=== PATIENT | female | born 1935 | race Caucasian/White ===

== ENCOUNTER → 2017-02-04 | Outpatient (CLI) | END | disposition home or self-care (01) | DX: M17.11 Unilateral primary osteoarthritis, right knee (principal); Z96.652 Presence of left artificial knee joint | CPT/HCPCS: 20610; 73562; G0463 ==

== ENCOUNTER → 2017-04-08 | Outpatient (CLI) | payer MEDICARE, OTHER ==
--- NOTE | 2017-04-30 04:04 | HKNOTE ---
DATE OF SERVICE: MAIN COMPLAINT: Pain in the right knee. The patient was last seen by me on February 04, 2017 complaining of pain in her right knee. She has previously had a left knee replacement in 2011. She was diagnosed as having degenerative osteoarthritis of the right knee. She was given a cortisone injection into the knee and advised that she will need to have a knee replacement at some time in the near future. The patient comes in for recheck on the knee today. PHYSICAL EXAMINATION: Blood pressure 140/80, temp 99.5. Height 5 foot 1, weight 130 pounds. KNEES: Examination of the right knee. Range of motion is 0-85 degrees. Marked severe pain on attempted flexion, 85 degrees. 6+ crepitus in the knee and the patella. IMAGING: X-rays of the right knee obtained in January were reviewed. These show severe degenerative osteoarthritis in medial compartment of patellofemoral joint. ASSESSMENT: The patient was advised that she will definitely need to have a knee replacement sooner or later. She indicates that she is not ready to consider surgery. We did spend considerable time discussing knee replacement, possible complications, and recovery from the surgery. PROCEDURE: Under sterile condition I gave her an injection of 2 cc of Kenalog and 10 cc of 2 percent lidocaine into the knee and she will be seen again as necessary for further evaluation and treatment, depending on whether she wishes to proceed with the surgery or consider further conservative measures. Dictated By: Mateo Tong MD /cece/nell /Document#: [id number]
--- NOTE | 2017-04-30 04:04 | HKNOTE ---
DATE OF SERVICE: 04/08/2017 MAIN COMPLAINT: The patient comes in for a recheck on her right knee. She was last seen by me on February 04. She was given a cortisone injection into the knee at that time, after diagnosing severe arthritis of the knee. The injection gave her about 3 weeks of excellent improvement. The pain has returned, but it is not as bad as it was before. It was not as bad as it had as it had been before. In the past week or so, the pain has become very much more severe. She indicates that it is "an 8 or a 9 on a scale of 10." PHYSICAL EXAMINATION: The patient has difficult time walking. VITAL SIGNS: Height 5 foot 1 weight, 130 pounds, blood pressure 140/80, temperature 99.5. KNEES: Examination of the right knee. Extension is full. Flexion is to 85 degrees and there is quite severe pain on attempting further flexion. 6+ crepitus of the knee and none of the patella. No external sign of infection or inflammation. 2+ effusion. 6+ crepitus in the knee and the patella. IMAGING: The x-rays obtained in January were reviewed today. These once again show severe degenerative osteoarthritis in medial compartment of patellofemoral joint. ASSESSMENT: The patient was advised that she most definitely will need to have a right knee replacement sometime in the near future. Considerable time was spent with her discussing what was involved with knee replacement. Postoperative course was discussed with her. She was shown videos of patients of [facility] who had knee replacement surgery. She was given a copy of my booklet on knee arthritis and knee replacement surgery. PROCEDURE: Under sterile conditions, she was given an injection of 2 cc of Kenalog with 6 cc 2 percent lidocaine into the right knee and she will call when she wishes to proceed with surgery or consider further injections. Dictated By: Mateo Tong MD /cece/nell /Document#: [id number]
== END | disposition home or self-care (01) ==
LOC: HKI 13:25
DX: M17.11 Unilateral primary osteoarthritis, right knee (principal)
CPT/HCPCS: 20610; G0463

== ENCOUNTER → 2017-05-02 | Outpatient (CLI) | payer MEDICARE, OTHER ==
--- NOTE | 2017-05-05 14:22 | HKNOTE ---
DATE OF SERVICE: 05/02/2017 CHIEF COMPLAINT: Right knee pain. HISTORY OF THE PRESENT ILLNESS: Cherelle is a 81-year-old female who is here for evaluation of right knee pain. The patient has had pain in her knees for many years. Pain has worsened over the last 6 months to a point where it is interfering with routine activities. She is having difficulty with w alking, getting up from a sitting position and sleeping at night. She has been taking ibuprofen wit hout much relief. She is able to walk a short distance after which the knee becomes painful. She d id have a left knee replacement by Dr. Tong a few years ago and has done well with that. At t his time, she is considering a right total knee replacement and is here to discuss further managemen t. PAST MEDICAL HISTORY: Significant for left total knee replacement. The patient takes cholesterol m edications and aspirin but is otherwise healthy. ALLERGIES: None. REVIEW OF SYSTEMS: Positive for phlebitis in the past. Denies any other cardiac or pulmonary probl ems. PHYSICAL EXAMINATION: This shows a pleasant female, awake, alert and oriented, walks with a slight limp on her right side. Examination of the right knee shows a varus deformity of about 10 degrees. Range of motion is 15 to 95 degrees with medial joint line tenderness and crepitus. There is no i nstability and no neovascular deficit. The left knee has a healed incision with full range of motio n. X-rays of the right knee were reviewed and show advance osteoarthritis with complete loss of med ial joint space and osteophyte formation. ASSESSMENT AND PLAN: A 81-year-old female with advanced osteoarthritis of her right knee. She has failed conservative treatment for more than 2 years. Over the past 6 months, the pain has reached a point where she is considering surgical treatment. Risks and benefits of total knee replacement we re discussed. Implant materials and surgical techniques were discussed and the patient would like t o proceed with right knee replacement in the near future. Dictated By: LINCOLN SARGENT/ETJAL Conf#: [id number] DID#: [id number]
== END | disposition home or self-care (01) ==
LOC: HKI 15:03
PROVIDERS: ATTEND Orthopaedic Surgery
DX: M17.11 Unilateral primary osteoarthritis, right knee (principal); E78.00 Pure hypercholesterolemia, unspecified; Z96.652 Presence of left artificial knee joint
CPT/HCPCS: G0463

== ENCOUNTER → 2017-07-11 | Outpatient (CLI) | payer MEDICARE, OTHER ==
--- NOTE | 2017-07-12 15:21 | HKNOTE ---
DATE OF SERVICE: 07/11/2017 Ms. Kumari is a 81-year-old female who is here for preoperative visit related to her right knee repl acement. The patient has advanced osteoarthritis of her right knee. She is scheduled for right tot al knee replacement on 07/15/2017. Risks and benefits of surgical treatment were discussed with the patient in detail including but not limited to bleeding, infection, scarring stiffness, injury to nerves and vessels, chronic pain, imp lant failure, fracture, dislocation, DVT, PE, and need for further surgery. The patient understands and wishes to proceed. She is scheduled for a postop followup in 2 weeks. Dictated By: LINCOLN SARGENT/NTS Conf#: [id number] DID#: [id number]
== END | disposition home or self-care (01) ==
LOC: HKI 14:24
PROVIDERS: ATTEND Orthopaedic Surgery
DX: Z01.818 Encounter for other preprocedural examination (principal); M17.11 Unilateral primary osteoarthritis, right knee
CPT/HCPCS: G0463

== ENCOUNTER 2017-07-15 05:54 | Inpatient (IN) | payer MEDICARE, OTHER ==
--- NOTE | 2017-07-08 14:25 | PREOPHP ---
DATE OF ADMISSION: 07/15/2017 PREOPERATIVE INTERNAL MEDICINE CONSULTATION, MEDICAL HISTORY AND PHYSICAL Patient to have surgery with Dr. Lincoln Salinas on 07/15/2017. CONSULTATION REQUESTED BY: Dr. Lincoln Salinas for medical evaluation and clearance of a 81-year-old ayad hernandez about to undergo surgery. Thank you, Dr. Salinas, for participating and allowing us to participate in the care of our patient. HISTORY OF PRESENT ILLNESS: Cherelle Kumari, a 81-year-old woman, issues with both of her knees, had a knee replacement done on the left within the last couple of years and currently is being admitted for the right knee total knee replacement. In terms of her past medical and surgical history, medic ally she has had no hospitalizations. She had 2 pregnancies which were vaginal deliveries. Surgica lly she has had a hysterectomy, had a total knee replacement on the left as well as cataract surgery , right and left. She has not broken any big bones. MEDICATIONS: She takes Simvastatin 10 mg a day and a baby aspirin which she is stopping before her surgery. ALLERGIES: SHE IS NOT ALLERGIC TO ANY MEDICATIONS. SOCIAL HISTORY: The patient is a , has 2 children, 5 grandchildren, no great grandchildren. S he does not smoke. Alcohol socially. Does drink 1 to 2 cups of coffee a day. Has no difficulty sl eeping at night. FAMILY HISTORY: Both parents are . Father at age 71 of heart, mother age 54 of breast cancer. Two brothers are living, one of lung cancer. Family history of diabetes, heart, canc er, hypertension and stroke. REVIEW OF SYSTEMS HEENT: Periodic tension headaches. CARDIORESPIRATORY: Denies any chest pain or shortness of breath. GASTROINTESTINAL: No melena or hematemesis. GENITOURINARY: No urgency, frequency. GYNECOLOGIC: Post hysterectomy. MUSCULOSKELETAL: Positive for right knee pain. NEUROPSYCHIATRIC: Unremarkable. GENERAL HEALTH: As above. PHYSICAL EXAMINATION: VITAL SIGNS: The patient's blood pressure was 140/90, pulse was 85 and regular, respirations were 1 8, temperature 97.9, height 60 inches, weight 130 pounds. GENERAL: The patient was noted to be a well-developed, well-nourished female, alert and cooperative , in no apparent acute distress, oriented to time, place and person. HEAD, EARS, EYES, NOSE AND THROAT: Head was atraumatic. The eyes, pupils were equal, reactive to l ight and accommodation. Fundi were benign. Tympanic membranes were unremarkable. Nose was negativ e. Mouth was unremarkable. Fair oral hygiene was present. NECK: Supple without any rigidity. Trachea was midline. Thyroid was within normal limits. Neck v eins were flat. Carotid pulses were equal. No bruits were heard. BACK: Unremarkable. CHEST: Symmetrical. BREASTS AND AXILLARY: Did not reveal any masses. LUNGS: Clear to percussion and auscultation. HEART: PMI is fifth intercostal space at the midclavicular line. Regular sinus rhythm was noted. No significant murmurs, rubs or gallops being elicited. ABDOMEN: Soft, good bowel sounds were noted. No significant organomegaly, masses or tenderness. S car from prior surgery was noted. GENITALIA: Normal female external genitalia. PELVIC/RECTAL: Pelvic vaginal exam unremarkable. The patient is post-hysterectomy. Rectal exam wa s unremarkable. EXTREMITIES: Did not reveal any clubbing, edema or cyanosis. Scar was noted on the left knee from her total knee replacement. Peripheral pulses were physiologic. SKIN: Moist and warm without any eruptions. No gross lymphadenopathy was noted. NEUROLOGIC: Grossly intact. IMPRESSION: 1. Degenerative joint disease, right knee. 2. Status post total knee replacement on the left. 3. Hyperlipidemia. 4. Degenerative joint disease. 5. Menopausal syndrome. 6. Stable health. DISCUSSION: Review of laboratory and other data revealed the following: The patient's electrolyte s, BUN, creatinine, liver function tests, calcium were normal. Random glucose was 111, minimally el evated lipids. Hemoglobin A1c, CBC, UA, PT and PTT were normal. The patient's EKG showed some nons pecific ST-T wave changes, but no acute ST-T wave changes being noted, and the patient's chest x-ray was normal. Dr. Salinas, I see no contraindications to patient undergoing current proposed surgery under desired form of anesthesia and feel she is a suitable candidate at this particular point in time. I will be more than happy to follow her up with you during her stay at [facility]. Thank you again, Dr. Salinas, for allowing us to participate and for participating in the care of our patient. Dictated By: JOSS ARROYO/TEJAL Conf#: [id number] DID#: [id number] CC: LINCOLN SALINAS MD;*[facility]*
[~2017-07-15] VITALS: Ht 154.9 cm; Wt 59.2 kg
[2017-07-15] VITALS (22 sets, daily range): BP systolic 105–160; BP diastolic 56–78; PULSE 65–102; RESP 14–34; Ht 154.9 cm; Wt 59.2 kg
[~2017-07-15 05:54] MED LIST: TRANEXAMIC ACID 1,000 MG in DEXTROSE 5% 100 ML IV ONE
[2017-07-15] MEDS ORDERED: ACETAMINOPHEN 1000MG/100ML IV 100 ML IVPB ONE (07:00)
[2017-07-15] MEDS ORDERED: LANSOPRAZOLE 30 MG CAP PO ONE (07:00)
[2017-07-15] MEDS ORDERED: ONDANSETRON 4 MG INJ IV ONE (07:00)
[2017-07-15] MEDS ORDERED: CEFAZOLIN SODIUM 2GM/D5W 50 X1 IVPB ONE (07:00)
[2017-07-15] MEDS ORDERED: DEXAMETHASONE 4 MG/ML 1 ML INJ IV ONE (07:00)
[2017-07-15] MEDS ORDERED: CELECOXIB 200 MG CAP PO ONE (07:00)
[2017-07-15] MEDS ORDERED: ASPI325T4 PO (07:23)
[2017-07-15] MEDS ORDERED: SIMV10TA PO (07:24)
[2017-07-15] MEDS ORDERED: CALC3.7S4 NASAL (07:25)
--- NOTE | 2017-07-15 07:41 | HPN ---
Date/Time of Note Date/Time of Note DATE: 07/15/17 TIME: 07:41 Interval H&P Admission Note Pt. seen H&P reviewed: No system changes ANTONI SANDHU PA-C Jul 15, 2017 07:41
[2017-07-15] MEDS ORDERED: TRANEXAMIC ACID 1,000 MG in DEXTROSE 5% 100 ML IV ONE (08:00)
[2017-07-15] MEDS ORDERED: ETOMIDATE 20 MG INJ ONE (08:43)
[2017-07-15] MEDS ORDERED: METOCLOPRAMIDE 10 MG INJ ONE (08:44)
[2017-07-15] MEDS ORDERED: ONDANSETRON 4 MG INJ ONE (08:44)
[2017-07-15] MEDS ORDERED: MIDAZOLAM 1 MG/ML 2 ML INJ ONE (08:44)
[2017-07-15] MEDS ORDERED: FENTAnyl 50 MCG/ML VIAL ONE (08:44)
[2017-07-15] MEDS ORDERED: ROPIVACAINE 0.2% 20 ML VIAL ONE (09:02)
[2017-07-15] MEDS ORDERED: DEXAMETHASONE 4 MG/ML 1 ML INJ ONE (09:04)
[2017-07-15] MEDS ORDERED: PROPOFOL 100 ML ONE (09:43)
[2017-07-15] MEDS ORDERED: CEFAZOLIN 1 GM INJ ONE (09:43)
[2017-07-15] MEDS ORDERED: EPHEDrine SULFATE 50 MG/5 ML SYG ONE (09:44)
[2017-07-15] MEDS ORDERED: HYDROmorphONE (0.2 MG/ML) 10ML SYG IV PRN ×3 (10:00)
[2017-07-15] MEDS ORDERED: ONDANSETRON 4 MG INJ IV PRN (10:00)
[2017-07-15] MEDS ORDERED: MEPERIDINE 25 MG INJ IV PRN (10:00)
[2017-07-15] MEDS ORDERED: DIPHENHYDRAMINE 50 MG INJ IV PRN (10:00)
--- NOTE | 2017-07-15 11:13 | SIPON ---
Date/Time of Note Date/Time of Note DATE: 07/15/17 TIME: 11:12 Operative Report Preoperative Diagnosis right knee DJD Postoperative Diagnosis same Operation/Procedure Performed right TKA Surgeon see signature line business assistant Dr. Mitchell Sidhu Second assist: ANTONI SANDHU PA-C Anesthesia: spinal Estimated blood loss: 150 - 200 ml's Transfusion Required none Specimen bone Grafts/Implants DePuy 4 femur, 4 tibia, 6 poly, 35 patella Complications none LINCOLN SALINAS Jul 15, 2017 11:13
--- NOTE | 2017-07-15 11:38 | PDOCDIS ---
Discharge Instructions DIAGNOSIS Discharge Diagnosis Status post right total knee arthroplasty CONDITION Patient Condition: Good HOME CARE INSTRUCTIONS: Diet Instructions: Regular ACTIVITY: Activity Restrictions: Slowly Increase Activity Rest between Activity Avoid heavy lifting No Sexual Activity Do not Drive Do not operate Machinery Do not operate Power Tool Avoid Heavy Housework Keep Limb Elevated (2-3 pillows under the foot/ankle. Cold therapy over surgical dressing.) Weight Bearing Bathing Restrictions: Shower (Mepilex dressing to remain on the knee until postoperative appointment. Keep the area clean and dry.) FOLLOW UP/APPOINTMENTS Follow-up Plan Follow-up at postoperative appointment provided to you at your preoperative visit. ANTONI SANDHU PA-C Jul 15, 2017 11:38
[2017-07-15] MEDS ORDERED: BISACODYL 10 MG SUPP PR PRN (12:00)
[2017-07-15] MEDS ORDERED: SENNA/DOCUSATE NA (8.6MG/50MG) TAB PO PRN (12:00)
[2017-07-15] MEDS ORDERED: MAGNESIUM HYDROXIDE 30ML CUP PO PRN (12:00)
[2017-07-15] MEDS ORDERED: DIPHENHYDRAMINE 50 MG INJ IM PRN (12:00)
[2017-07-15] MEDS ORDERED: ZOLPIDEM 5 MG TAB PO PRN (12:00)
[2017-07-15] MEDS ORDERED: KETOROLAC 15 MG INJ IV PRN (12:00)
[2017-07-15] MEDS ORDERED: ASPIRIN (EC) 325 MG TAB PO ONE (12:00)
[2017-07-15] MEDS ORDERED: BETHANECHOL 25 MG TAB PO PRN (12:00)
[2017-07-15] MEDS ORDERED: oxyCODONE 5 MG TAB PO PRN (12:00)
[2017-07-15] MEDS ORDERED: NALOXONE (0.4 MG/ML) INJ IV PRN (12:00)
[2017-07-15] MEDS ORDERED: DOCUSATE SODIUM 100 MG CAP PO ONE (12:00)
[2017-07-15] MEDS ORDERED: NA PHOSPHATE/BIPHOS 133 ML ENEMA PR PRN (12:00)
[2017-07-15] MEDS: CEFAZOLIN 1 GM/50 ML (PMX) 50 ML IVPB SCH ×2 (12:06→20:16)
[2017-07-15] MEDS: ONDANSETRON 4 MG INJ IV SCH ×3 (12:14→23:02)
[2017-07-15] MEDS: SOD CHLORIDE 0.9% 1,000 ML IV SCH ×2 (12:15→16:07)
--- NOTE | 2017-07-15 12:21 | OPR ---
Date/Time of Note Date/Time of Note DATE: 07/15/17 TIME: 12:16 Operative Report Procedure Date: Jul 15, 2017 Preoperative Diagnosis Right knee osteoarthritis Postoperative Diagnosis Same Operation/Procedure Performed Right total knee replacement Surgeon see signature line Sizing Sponger Mitchell Sidhu Second Sizing Sponger: ANTONI SANDHU PA-C Anesthesia Type: spinal Estimated Blood Loss: 150 - 200 ml's Transfusion none Specimen Bone Grafts/Implants DePuy size 4 femur, size 4 tibia, 6 mm polyethylene, 35 mm patella Tubes/Drains None Complications none Pt Condition Post Procedure: stable Disposition: PACU Indications The patient is a 81-year-old female with advanced osteoarthritis of her right knee. She has failed conservative treatment for the past 1 year Procedure Description The patient was placed supine on the operating room table. The right knee was prepped and draped in usual manner. Examination of the right knee under anesthesia showed a varus deformity of 10 and flexion deformity of 10. An anterior midline incision was made. A mid vastus approach was made and the patella displaced laterally without everting it. There was advanced arthritis of the knee with complete loss of cartilage in the medial compartment and osteophytes. Using intramedullary alignment, the distal femoral cut was made in 5 of valgus. Femur was measured to be a size 4 from the [employer] knee system. The 4 cutting block was placed in anterior posterior and chamfer cuts were made. The notch was cut in the distal femur to accommodate the posterior stabilized femoral component. The PCL was sacrificed. Remnants of the menisci were removed. The tibia was prepared for a size 4 component and using external alignment of the tibial cut. The patella was cut using a freehand technique. Trial components were placed including a 4 femur, 4 tibia, 35 patella and 6 mm of polyethylene. This resulted in a stable knee from 0-120 with good balance and tracking. These were obtained to confirm placement of the implants and alignment. Once satisfactory alignment was confirmed, final components were cemented in place. This included a size 4 narrow femur, size 4 tibia and 6 mm of polyethylene and a 35 patella. The knee was thoroughly irrigated and injected with Marcaine and Toradol. The knee was closed in layers using #1 Vicryl for arthrotomy and fascia 2-0 Vicryl for subcutaneous tissue and 3-0 Monocryl for the skin. Patient was transferred to the recovery room in stable condition. LINCOLN SALINAS Jul 15, 2017 12:21
--- NOTE | 2017-07-15 12:41 | RADRPT ---
PROCEDURE: X-RAY RIGHT KNEE CLINICAL INDICATION: Total knee replacement. Status post surgery. Follow-up. TECHNIQUE: Single view of the right knee is available for review. COMPARISON: 02/04/2017 FINDINGS: Patient is status post total knee replacement. The knee replacement is in good position and alignme nt without evidence of migration, loosening, infection, or fracture. No bone destructive or erosive changes are seen. The bones are osteopenic. No acute fracture is identified. IMPRESSION: 1. Appropriate postoperative appearance of right knee replacement. 2. No acute change and no evidence for fracture. RPTAT: XX .Johny Freitas MD, MD Date Time Electronically viewed and signed by .Johny Freitas MD, MD on 07/15/2017 12:41 .T/
--- NOTE | 2017-07-15 13:11 | CONS ---
Date/Time of Note Date/Time of Note DATE: 07/15/17 TIME: 13:02 Consult Date/Type/Reason Admit Date/Time Jul 15, 2017 at 05:54 Initial Consult Date 07/02/2017 Type of Consultation: internal medicine Reason for Consultation pre-op medicla evaluation and clearance Ordering Provider: LINCOLN SALINAS seen in recovery room lert no complaints doing well waiting for a bed Objective Vital Signs Date Time Temp Pulse Resp B/P Pulse Ox O2 Delivery O2 Flow Rate FiO2 07/15/17 11:50 98.4 07/15/17 11:48 92 23 111/58 100 Mask 10.0 Exam vss heent negative lungs clear heart regular rhythm abdomen soft extremity s/p tkr right side Results/Medications Medications Current Medications Sodium Chloride (NS) 1,000 ml @ 80 mls/hr [id number] IV Last administered on 12:15; Admin Dose 80 MLS/HR; Start 07/15/17 at 11:38 Oxycodone HCl (Roxicodone) 20 mg Q3H PRN PO PAIN LEVEL 8-10; Start 07/15/17 at 12:00 Oxycodone HCl (Roxicodone) 10 mg Q3H PRN PO PAIN LEVEL 4-7; Start 07/15/17 at 12:00 Oxycodone HCl (Roxicodone) 5 mg Q3H PRN PO PAIN LEVEL 1-3; Start 07/15/17 at 12:00 Zolpidem Tartrate (Ambien) 5 mg HS PRN PO INSOMNIA; Start 07/15/17 at 12:00 Ondansetron HCl 4 mg 4 mg Q6H IV Last administered on 07/15/17 12:14; Admin Dose 4 MG; Start 07/15/17 at 12:00; Stop 07/16/17 at 06:01 Cefazolin Sodium (Ancef 1 Gm/50 ml (Pmx)) 50 ml @ 100 mls/hr Q8H IVPB Last administered on 07/15/17 12:06; Admin Dose 100 MLS/HR; Start 07/15/17 at 12: 00; Stop 07/16/17 at 04:29 Pantoprazole (Protonix Tab) 40 mg DAILY@06 PO ; Start 07/17/17 at 06:00 Docusate Sodium/ Ferrous Fumarate (Marely-Sequels) 1 tab BID PO ; Start at 09:00 Docusate Sodium (Colace) 200 mg BID PO ; Start 07/16/17 at 09:00; Stop at 08:59 Simethicone (Mylicon) 80 mg TID PRN PO DISTENSION/GAS/BLOATING; Start at 12:00 Senna/Docusate Sodium (Senokot-S) 2 tab BID PRN PO CONSTIPATION; Start at 12:00 Magnesium Hydroxide (Milk Of Mag) 30 ml HS PRN PO CONSTIPATION; Start at 12:00 Bisacodyl (Dulcolax Supp) 10 mg DAILY PRN ID CONSTIPATION; Start 07/15/17 at 12:00 Sodium Biphosphate/ Sodium Phosphate (Fleet Enema) 133 ml DAILY PRN ID CONSTIPATION; Start 07/15/17 at 12:00 Diphenhydramine HCl (Benadryl) 25 mg Q4H PRN IM ITCHING OR RASH; Start at 12:00 Naloxone HCl (Narcan) 0.2 mg Q2M PRN IV DECREASED REPIRATORY RATE; Start at 12:00 Aspirin (Ecotrin) 325 mg DAILY PO ; Start 07/16/17 at 09:00 Celecoxib (Celebrex) 100 mg BID PO ; Start 07/15/17 at 21:00 Ketorolac Tromethamine (Toradol) 15 mg Q6H PRN IV PAIN; Start 07/15/17 at 12: 00; Stop 07/18/17 at 11:59 Gabapentin (Neurontin) 100 mg BID PO ; Start 07/15/17 at 21:00 Assessment/Plan Chief Complaint/Hosp Course plan is to reorder pre-op meeds and follow with you Problems: Additional Assessment/Plan will follow thank you JOSS Reyes MD Jul 15, 2017 13:11
[2017-07-15] MEDS: CELECOXIB 100 MG CAP PO SCH (21:35)
[2017-07-15] MEDS: GABAPENTIN 100 MG CAP PO SCH (21:35)
[2017-07-15] MEDS: ATORVASTATIN 10 MG TAB PO SCH (21:35)
[2017-07-16] VITALS: BP 128/59; PULSE 70; RESP 18
[2017-07-16] MEDS: oxyCODONE 5 MG TAB PO PRN ×3 (01:43→12:49)
[2017-07-16] MEDS: CEFAZOLIN 1 GM/50 ML (PMX) 50 ML IVPB SCH (04:04)
[2017-07-16 05:25] LABS: BASOPHILS % 0.1 % (0.0-2.0); HEMATOCRIT 30.7 % (37.0-47.0); HEMOGLOBIN 10.1 g/dl (12.0-16.0); LYMPHOCYTES # 1.1 10^3/ul (0.8-2.9); LYMPHOCYTES % 10.6 % (15.0-51.0); MEAN CORPUSCULAR HEMOGLOBIN 30.5 pg (29.0-33.0); MEAN CORPUSCULAR HGB CONC 32.9 g/dl (32.0-37.0); MEAN CORPUSCULAR VOLUME 92.7 fl (82.0-101.0); MEAN PLATELET VOLUME 10.1 fl (7.4-10.4); MONOCYTE # 0.8 10^3/ul (0.3-0.9); MONOCYTES % 7.6 % (0.0-11.0); NEUTROPHIL # 8.5 10^3/ul (1.6-7.5); NEUTROPHILS % 81.4 % (39.0-77.0); PLATELET COUNT 223 10^3/UL (140-415); RED BLOOD COUNT 3.31 10^6/ul (4.20-5.40); RED CELL DISTRIBUTION WIDTH 13.2 % (11.5-14.5); WHITE BLOOD COUNT 10.5 10^3/ul (4.8-10.8)
[2017-07-16] MEDS: ONDANSETRON 4 MG INJ IV SCH (06:00)
[2017-07-16 06:21] LABS: CALCIUM 8.7 mg/dl (8.4-10.2); CREATININE 0.79 mg/dl (0.44-1.00); POTASSIUM 4.1 mmol/L (3.5-5.1)
--- NOTE | 2017-07-16 07:43 | CONS ---
Date/Time of Note Date/Time of Note DATE: 07/16/17 TIME: 07:40 Consult Date/Type/Reason Admit Date/Time Jul 15, 2017 at 05:54 Initial Consult Date 07/02/2017 Type of Consultation: internal medicine Reason for Consultation internal medicine f/u and management Ordering Provider: LINCOLN SALINAS Subjective had a good night minimal pain feels good this morning Objective Vital Signs Date Time Temp Pulse Resp B/P Pulse Ox O2 Delivery O2 Flow Rate FiO2 07/16/17 00:00 97.9 70 18 128/59 99 Room Air 07/15/17 11:48 10.0 Intake and Output 07/15/17 07/15/17 07/16/17 15:00 23:00 07:00 Intake Total 1640 ml 330 ml 1450 ml Output Total 200 ml 180 ml Balance 1440 ml 150 ml 1450 ml Exam vss heent negative lungs clear heart regular rhythm abdomen soft Results/Medications Result Diagram: 07/16/17 0435 07/16/17 0435 Results 24 hrs Laboratory Tests Test 07/16/17 04:35 White Blood Count 10.5 Red Blood Count 3.31 L Hemoglobin 10.1 L Hematocrit 30.7 L Mean Corpuscular Volume 92.7 Mean Corpuscular Hemoglobin 30.5 Mean Corpuscular Hemoglobin Concent 32.9 Red Cell Distribution Width 13.2 Platelet Count 223 Mean Platelet Volume 10.1 Neutrophils % 81.4 H Lymphocytes % 10.6 L Monocytes % 7.6 Eosinophils % 0.0 Basophils % 0.1 Nucleated Red Blood Cells % 0.0 Neutrophils # 8.5 H Lymphocytes # 1.1 Monocytes # 0.8 Eosinophils # 0.0 Basophils # 0.0 Nucleated Red Blood Cells # 0.0 Sodium Level 139 Potassium Level 4.1 Chloride Level 107 Carbon Dioxide Level 24 Anion Gap 12 Blood Urea Nitrogen 20 Creatinine 0.79 Glucose Level 113 Calcium Level 8.7 Medications Current Medications Sodium Chloride (NS) 1,000 ml @ 80 mls/hr [id number] IV Last administered on t 16:07; Admin Dose 80 MLS/HR; Start 07/15/17 at 11:38 Oxycodone HCl (Roxicodone) 20 mg Q3H PRN PO PAIN LEVEL 8-10; Start 07/15/17 at 12:00 Oxycodone HCl (Roxicodone) 10 mg Q3H PRN PO PAIN LEVEL 4-7; Start 07/15/17 at 12:00 Oxycodone HCl (Roxicodone) 5 mg Q3H PRN PO PAIN LEVEL 1-3 Last administered on 07/16/17 01:43; Admin Dose 5 MG; Start 07/15/17 at 12:00 Zolpidem Tartrate (Ambien) 5 mg HS PRN PO INSOMNIA; Start 07/15/17 at 12:00 Pantoprazole (Protonix Tab) 40 mg DAILY@06 PO ; Start 07/17/17 at 06:00 Docusate Sodium/ Ferrous Fumarate (Marely-Sequels) 1 tab BID PO ; Start at 09:00 Docusate Sodium (Colace) 200 mg BID PO ; Start 07/16/17 at 09:00; Stop at 08:59 Simethicone (Mylicon) 80 mg TID PRN PO DISTENSION/GAS/BLOATING; Start at 12:00 Senna/Docusate Sodium (Senokot-S) 2 tab BID PRN PO CONSTIPATION; Start at 12:00 Magnesium Hydroxide (Milk Of Mag) 30 ml HS PRN PO CONSTIPATION; Start at 12:00 Bisacodyl (Dulcolax Supp) 10 mg DAILY PRN DC CONSTIPATION; Start 07/15/17 at 12:00 Sodium Biphosphate/ Sodium Phosphate (Fleet Enema) 133 ml DAILY PRN DC CONSTIPATION; Start 07/15/17 at 12:00 Diphenhydramine HCl (Benadryl) 25 mg Q4H PRN IM ITCHING OR RASH; Start at 12:00 Naloxone HCl (Narcan) 0.2 mg Q2M PRN IV DECREASED REPIRATORY RATE; Start at 12:00 Celecoxib (Celebrex) 100 mg BID PO Last administered on 07/15/17 21:35; Admin Dose 100 MG; Start 07/15/17 at 21:00 Ketorolac Tromethamine (Toradol) 15 mg Q6H PRN IV PAIN; Start 07/15/17 at 12: 00; Stop 07/18/17 at 11:59 Gabapentin (Neurontin) 100 mg BID PO Last administered on 07/15/17 21:35; Admin Dose 100 MG; Start 07/15/17 at 21:00 Aspirin (Aspirin) 325 mg DAILY PO ; Start 07/16/17 at 09:00 Calcitonin Home (Miacalcin Nasal [place]) 1 spray DAILY NASAL ; Start 07/16/17 at 09:00 Atorvastatin Calcium (Lipitor) 10 mg DAILY@21 PO Last administered on 21:35; Admin Dose 10 MG; Start 07/15/17 at 21:00 Assessment/Plan Chief Complaint/Hosp Course plan is to reorder pre-op meeds and follow with you Problems: Additional Assessment/Plan patient looking forward to ambulating today.doing well thank you JOSS Reyes MD Jul 16, 2017 07:43
[2017-07-16 08:39] VITALS: BP 134/66; RESP 18
[2017-07-16] MEDS ORDERED: ASPIRIN (EC) 325 MG TAB PO SCH (09:00)
[2017-07-16] MEDS: CALCITONIN SALMON 3.7 ML NASAL SPRAY NASAL SCH (09:00)
[2017-07-16] MEDS: CELECOXIB 100 MG CAP PO SCH ×2 (09:37→22:39)
[2017-07-16] MEDS: FERROUS FUMARATE (SR) TAB PO SCH ×2 (09:37→20:47)
[2017-07-16] MEDS: GABAPENTIN 100 MG CAP PO SCH ×2 (09:37→20:47)
[2017-07-16] MEDS: ASPIRIN 325 MG TAB PO SCH (09:38)
[2017-07-16] MEDS: DOCUSATE SODIUM 100 MG CAP PO SCH ×2 (09:38→20:47)
--- NOTE | 2017-07-16 12:19 | PN ---
Date/Time of Note Date/Time of Note DATE: 07/16/17 TIME: 12:18 Assessment/Plan VTE Prophylaxis VTE Prophylaxis Intervention: ambulation, SCD's, other (Aspirin 325 mg) Lines/Catheters IV Catheter Type (from Nrsg): Peripheral IV Live in Place (from Nrsg): No Assessment/Plan Assessment/Plan -Pain Meds as needed -Dressing is clean and intact. -OOB with PT -ASA/SCDs for DVT Prophylaxis -Continue monitoring with Internal Medicine -Patient Stable -Expected discharge home tomorrow with home health as she has nobody at the house today. Subjective 24 Hr Interval Summary 81-year-old female postop day 1 status post right total knee arthroplasty. Denies any acute overnight events. Patient has been up and walking with physical therapy. Pain is well controlled and she has no complaints today. Currently resting in chair with knee at 90. Constitutional: no complaints Pain Control: well controlled Exam/Review of Systems Vital Signs Vitals Vital Signs Date Time Temp Pulse Resp B/P Pulse Ox O2 Delivery O2 Flow Rate FiO2 07/16/17 08:39 97.9 78 18 134/66 94 07/16/17 00:00 Room Air 07/15/17 11:48 10.0 Intake and Output 07/15/17 07/15/17 07/16/17 15:00 23:00 07:00 Intake Total 1640 ml 330 ml 1450 ml Output Total 200 ml 180 ml Balance 1440 ml 150 ml 1450 ml Exam Free Text/Dictation -No complications with dressing intact. -5/5 Tibialis Anterior, EHL Gastrocnemius/Soleus and Peroneals -Normal Sensation -Palpable DP/PT, Capillary Refill <2 secs -No Distal Edema -Negative Geovanni Sign/No calf pain -Toes Freely Movable Constitutional: alert, oriented, well developed Results Result Diagram: 07/16/17 0435 07/16/17 0435 ANTONI SANDHU PA-C Jul 16, 2017 12:19
[2017-07-16] MEDS: SOD CHLORIDE 0.9% 1,000 ML IV SCH (12:38)
[2017-07-16] MEDS: ATORVASTATIN 10 MG TAB PO SCH (20:47)
[2017-07-16 21:15] VITALS: BP 122/75; RESP 19
[2017-07-16 23:39] VITALS: BP 105/58; RESP 19
[2017-07-17] MEDS: SOD CHLORIDE 0.9% 1,000 ML IV SCH ×2 (01:08→13:38)
[2017-07-17] MEDS: oxyCODONE 5 MG TAB PO PRN ×2 (02:25→10:09)
[2017-07-17 05:17] LABS: BASOPHILS % 0.4 % (0.0-2.0); EOSINOPHILS # 0.1 10^3/ul (0.0-0.5); EOSINOPHILS % 0.7 % (0.0-7.0); HEMATOCRIT 27.6 % (37.0-47.0); HEMOGLOBIN 9.1 g/dl (12.0-16.0); LYMPHOCYTES # 1.8 10^3/ul (0.8-2.9); LYMPHOCYTES % 25.1 % (15.0-51.0); MEAN CORPUSCULAR VOLUME 93.9 fl (82.0-101.0); MEAN PLATELET VOLUME 10.1 fl (7.4-10.4); MONOCYTE # 0.7 10^3/ul (0.3-0.9); NEUTROPHIL # 4.4 10^3/ul (1.6-7.5); NEUTROPHILS % 63.4 % (39.0-77.0); PLATELET COUNT 191 10^3/UL (140-415); RED BLOOD COUNT 2.94 10^6/ul (4.20-5.40); RED CELL DISTRIBUTION WIDTH 13.4 % (11.5-14.5)
[2017-07-17 05:41] LABS: CALCIUM 8.5 mg/dl (8.4-10.2); CREATININE 0.94 mg/dl (0.44-1.00); POTASSIUM 4.4 mmol/L (3.5-5.1)
[2017-07-17] MEDS ORDERED: PANTOPRAZOLE (EC) 40 MG TAB PO SCH (06:00)
[2017-07-17 07:57] VITALS: BP 128/59; RESP 18
--- NOTE | 2017-07-17 08:01 | PN ---
Date/Time of Note Date/Time of Note DATE: 07/17/17 TIME: 07:59 Assessment/Plan VTE Prophylaxis VTE Prophylaxis Intervention: ambulation, SCD's, other (Aspirin 325 mg) Lines/Catheters IV Catheter Type (from Nrsg): Peripheral IV Live in Place (from Nrsg): No Assessment/Plan Assessment/Plan -Pain Meds as needed -ASA for DVT Prophylaxis x 4 weeks outpatient discussed. -Continue monitoring as outpatient on discharge -Follow-up at scheduled postop outpatient appointment or sooner if there is any issue. -Patient Stable -Discharge to Home with home health Subjective 24 Hr Interval Summary 81-year-old female postop day 2 status post right total knee arthroplasty. No acute overnight events. Has complaints of mild soreness to the right knee. Continues with physical therapy in regards to ambulation as well as range of motion and strengthening. Denies any chest pain/tightness or shortness of breath. Continues to improve. Constitutional: no complaints Pain Control: well controlled Exam/Review of Systems Vital Signs Vitals Vital Signs Date Time Temp Pulse Resp B/P Pulse Ox O2 Delivery O2 Flow Rate FiO2 07/17/17 07:57 98.4 73 18 128/59 96 07/16/17 00:00 Room Air 07/15/17 11:48 10.0 Intake and Output 07/16/17 07/16/17 07/17/17 15:00 23:00 07:00 Intake Total 700 ml 600 ml Balance 700 ml 600 ml Exam Free Text/Dictation -No complications with dressing intact. -5/5 Tibialis Anterior, EHL Gastrocnemius/Soleus and Peroneals -Normal Sensation -Palpable DP/PT, Capillary Refill <2 secs -No Distal Edema -Negative Geovanni Sign/No calf pain -Toes Freely Movable Constitutional: alert, oriented, well developed Results Result Diagram: 07/17/17 0442 07/17/17 044 ANTONI SANDHU PA-C Jul 17, 2017 08:01
[2017-07-17] MEDS: CALCITONIN SALMON 3.7 ML NASAL SPRAY NASAL SCH (09:00)
[2017-07-17] MEDS: GABAPENTIN 100 MG CAP PO SCH (10:08)
[2017-07-17] MEDS: DOCUSATE SODIUM 100 MG CAP PO SCH (10:08)
[2017-07-17] MEDS: ASPIRIN 325 MG TAB PO SCH (10:08)
[2017-07-17] MEDS: FERROUS FUMARATE (SR) TAB PO SCH (10:08)
[2017-07-17] MEDS: CELECOXIB 100 MG CAP PO SCH (10:09)
--- NOTE | 2017-07-17 10:49 | CONS ---
Date/Time of Note Date/Time of Note DATE: 07/17/17 TIME: 10:45 Consult Date/Type/Reason Admit Date/Time Jul 15, 2017 at 05:54 Initial Consult Date 07/02/2017 Type of Consultation: internal medicine Reason for Consultation medical f/u Ordering Provider: LINCOLN SALINAS Subjective feels well did well walking yesterday Objective Vital Signs Date Time Temp Pulse Resp B/P Pulse Ox O2 Delivery O2 Flow Rate FiO2 07/17/17 07:57 98.4 73 18 128/59 96 07/16/17 00:00 Room Air 07/15/17 11:48 10.0 Intake and Output 07/16/17 07/16/17 07/17/17 15:00 23:00 07:00 Intake Total 700 ml 600 ml Balance 700 ml 600 ml Exam vss stable lungs clear heart regular rhythm abdomen soft Results/Medications Result Diagram: 07/17/17 0442 07/17/17 0442 Results 24 hrs Laboratory Tests Test 07/17/17 04:42 White Blood Count 7.0 # Red Blood Count 2.94 L Hemoglobin 9.1 L Hematocrit 27.6 L Mean Corpuscular Volume 93.9 Mean Corpuscular Hemoglobin 31.0 Mean Corpuscular Hemoglobin Concent 33.0 Red Cell Distribution Width 13.4 Platelet Count 191 Mean Platelet Volume 10.1 Neutrophils % 63.4 Lymphocytes % 25.1 Monocytes % 10.0 Eosinophils % 0.7 Basophils % 0.4 Nucleated Red Blood Cells % 0.0 Neutrophils # 4.4 Lymphocytes # 1.8 Monocytes # 0.7 Eosinophils # 0.1 Basophils # 0.0 Nucleated Red Blood Cells # 0.0 Sodium Level 139 Potassium Level 4.4 Chloride Level 107 Carbon Dioxide Level 26 Anion Gap 10 Blood Urea Nitrogen 26 H Creatinine 0.94 Glucose Level 112 Calcium Level 8.5 Medications Current Medications Sodium Chloride (NS) 1,000 ml @ 80 mls/hr [id number] IV Last administered on t 16:07; Admin Dose 80 MLS/HR; Start 07/15/17 at 11:38 Oxycodone HCl (Roxicodone) 20 mg Q3H PRN PO PAIN LEVEL 8-10; Start 07/15/17 at 12:00 Oxycodone HCl (Roxicodone) 10 mg Q3H PRN PO PAIN LEVEL 4-7 Last administered on 07/17/17 10:09; Admin Dose 10 MG; Start 07/15/17 at 12:00 Oxycodone HCl (Roxicodone) 5 mg Q3H PRN PO PAIN LEVEL 1-3 Last administered on 07/17/17 02:25; Admin Dose 5 MG; Start 07/15/17 at 12:00 Zolpidem Tartrate (Ambien) 5 mg HS PRN PO INSOMNIA; Start 07/15/17 at 12:00 Pantoprazole (Protonix Tab) 40 mg DAILY@06 PO Last administered on 07/17/17 06:46; Admin Dose 40 MG; Start 07/17/17 at 06:00 Docusate Sodium/ Ferrous Fumarate (Marely-Sequels) 1 tab BID PO Last administered on 07/17/17 10:08; Admin Dose 1 TAB; Start 07/16/17 at 09:00 Docusate Sodium (Colace) 200 mg BID PO Last administered on 07/17/17 10:08; Admin Dose 200 MG; Start 07/16/17 at 09:00; Stop 07/19/17 at 08:59 Simethicone (Mylicon) 80 mg TID PRN PO DISTENSION/GAS/BLOATING; Start at 12:00 Senna/Docusate Sodium (Senokot-S) 2 tab BID PRN PO CONSTIPATION; Start at 12:00 Magnesium Hydroxide (Milk Of Mag) 30 ml HS PRN PO CONSTIPATION; Start at 12:00 Bisacodyl (Dulcolax Supp) 10 mg DAILY PRN [place] CONSTIPATION; Start 07/15/17 at 12:00 Sodium Biphosphate/ Sodium Phosphate (Fleet Enema) 133 ml DAILY PRN [place] CONSTIPATION; Start 07/15/17 at 12:00 Diphenhydramine HCl (Benadryl) 25 mg Q4H PRN IM ITCHING OR RASH; Start at 12:00 Naloxone HCl (Narcan) 0.2 mg Q2M PRN IV DECREASED REPIRATORY RATE; Start at 12:00 Celecoxib (Celebrex) 100 mg BID PO Last administered on 07/17/17 10:09; Admin Dose 100 MG; Start 07/15/17 at 21:00 Ketorolac Tromethamine (Toradol) 15 mg Q6H PRN IV PAIN; Start 07/15/17 at 12: 00; Stop 07/18/17 at 11:59 Gabapentin (Neurontin) 100 mg BID PO Last administered on 07/17/17 10:08; Admin Dose 100 MG; Start 07/15/17 at 21:00 Aspirin (Aspirin) 325 mg DAILY PO Last administered on 07/17/17 10:08; Admin Dose 325 MG; Start 07/16/17 at 09:00 Calcitonin [place] (Miacalcin Nasal [place]) 1 spray DAILY NASAL Last administered on 07/17/17 09:00; Admin Dose 1 SPRAY; Start 07/16/17 at 09:00 Atorvastatin Calcium (Lipitor) 10 mg DAILY@ PO Last administered on 20:47; Admin Dose 10 MG; Start 07/15/17 at 21:00 Assessment/Plan Chief Complaint/Hosp Course plan is to reorder pre-op meeds and follow with you Problems: Additional Assessment/Plan plan per ortho medically stable thank you yoli suggest vits and iron supplements JOSS LERMA MD Jul 17, 2017 10:49
[2017-07-17] MEDS ORDERED: ONDANSETRON 4 MG INJ IV PRN (14:30)
--- NOTE | 2017-07-17 16:20 | DS ---
Date/Time of Note Date/Time of Note DATE: 07/17/17 TIME: 16:19 Discharge Summary Admission/Discharge Info Admit Date/Time Jul 15, 2017 at 05:54 Discharge Date/Time Jul 17, 2017 at 15:10 Discharge Diagnosis Status post right total knee arthroplasty Patient Condition: Good Hospital Course On the day of admission, the patient underwent Right total knee arthroplasty Intraoperative complications: None Postoperative complications: None The patient was given prophylactic antibiotics and anticoagulants. On the day of surgery and first postoperative day patient was started on gait training and was taught usual restrictions following Knee replacement On postoperative day 1 dressing was clean dry and intact. No complications were observed. On the day of discharge, the wound was clean and healing well; there was no sign of infection. Wound care instructions were discussed with the patient. Discharge Temperature:98.4 Discharge White Blood Cell Count: 7 Discharge Hemoglobin:9.1 The patient was discharged home with home health. Arrangements were made for visiting nurses and home health/physical therapy. The patient will be seen in office at scheduled postoperative evaluation date given on their preoperative exam. Should patient complain of any problems prior to scheduled postoperative evaluation date, they may call into outpatient clinic to determine if they need to be scheduled at sooner appointment to be seen immediately if needed. Discharge medications: As per medication reconciliation form Diet: Same as preadmission diet. This is Antoni Alejandra PA-C dictating discharge summary for Dr. Edgar. Home Meds Reported Medications Calcitonin-[place], Synthetic* (Calcitonin-[place]*) 3.7 Ml [place].pump, 1 SPRAY NASAL DAILY, SPR ALTERNATING NOSTRIL 07/15/17 Simvastatin* (Zocor*) 10 Mg Tablet, 10 MG PO QHS, #30 TAB 07/15/17 Aspirin* (Aspirin*) 325 Mg Tablet, 325 MG PO DAILY, TAB 07/15/17 Discontinued Reported Medications [None] No Conflict Check 02/11/12 Follow-up Plan Follow-up at postoperative appointment provided to you at your preoperative visit. Primary Care Provider Omar Meneses MD Pending Labs Laboratory Tests Test 07/17/17 04:42 White Blood Count 7.010^3/ul (4.8-10.8) Red Blood Count 2.9410^6/ul (4.20-5.40) Hemoglobin 9.1g/dl (12.0-16.0) Hematocrit 27.6% (37.0-47.0) Mean Corpuscular Volume 93.9fl (82.0-101.0) Mean Corpuscular Hemoglobin 31.0pg (29.0-33.0) Mean Corpuscular Hemoglobin Concent 33.0g/dl (32.0-37.0) Red Cell Distribution Width 13.4% (11.5-14.5) Platelet Count 75815^3/UL (140-415) Mean Platelet Volume 10.1fl (7.4-10.4) Neutrophils % 63.4% (39.0-77.0) Lymphocytes % 25.1% (15.0-51.0) Monocytes % 10.0% (0.0-11.0) Eosinophils % 0.7% (0.0-7.0) Basophils % 0.4% (0.0-2.0) Nucleated Red Blood Cells % 0.0/100WBC (0.0-0.0) Neutrophils # 4.410^3/ul (1.6-7.5) Lymphocytes # 1.810^3/ul (0.8-2.9) Monocytes # 0.710^3/ul (0.3-0.9) Eosinophils # 0.110^3/ul (0.0-0.5) Basophils # 0.010^3/ul (0.0-0.1) Nucleated Red Blood Cells # 0.010^3/ul (0.0-0.0) Sodium Level 139mmol/L (135-144) Potassium Level 4.4mmol/L (3.5-5.1) Chloride Level 107mmol/L (97-110) Carbon Dioxide Level 26mmol/L (21-31) Anion Gap 10 (8-16) Blood Urea Nitrogen 26mg/dl (7-20) Creatinine 0.94mg/dl (0.44-1.00) Glucose Level 112mg/dl (70-220) Calcium Level 8.5mg/dl (8.4-10.2) ANTONI SANDHU PA-C Jul 17, 2017 16:20
== END 2017-07-17 15:10 | disposition home health service (06) | DRG 470 ==
LOC: REC 05:54 → EDSTATUS 07:30 → MS1 14:54
PROVIDERS: ADMIT Orthopaedic Surgery; ATTEND Orthopaedic Surgery
PROC: 0SRC0J9 Replacement of Right Knee Joint with Synthetic Substitute, Cemented, Open Approach (ICD-10-PCS; principal; 2017-07-15 09:00)
DX: M17.11 Unilateral primary osteoarthritis, right knee (principal); E78.5 Hyperlipidemia, unspecified; Z96.652 Presence of left artificial knee joint; Z78.0 Asymptomatic menopausal state
CPT/HCPCS: 73560; 80048; 85025; 86850; 86900; 86901; 88304; 88311; 97110; 97116; 97163; 97165; 97530; 97535; C1713; C1776; J0131; J0690; J1100; J1170; J2250; J2405; J2765; J2795; J3010; J7030

== ENCOUNTER → 2017-08-01 | Outpatient (CLI) | END | disposition home or self-care (01) ==

== ENCOUNTER → 2017-08-29 | Outpatient (CLI) | END | disposition home or self-care (01) ==

== ENCOUNTER → 2017-10-17 | Outpatient (CLI) | END | disposition home or self-care (01) ==

== ENCOUNTER 2017-12-04 11:15 | Inpatient (IN) | END 2017-12-04 21:10 | DRG 502 ==

== ENCOUNTER 2017-12-04 21:00 | Inpatient (IN) | END 2017-12-16 12:11 | disposition home health service (06) | DRG 560 ==